=== PATIENT | male | born 1950 | race Caucasian/White ===

== ENCOUNTER 2019-04-09 06:27 | Inpatient (IN) | payer OTHER, MEDICARE ==
[~2019-04-09] VITALS: Ht 177.8 cm; Wt 81.9 kg
[~2019-04-09 06:27] MED LIST: ASPIRIN EC81 M1 PO; CLARITIN10 MG; COREG12.5 MG PO; COUMADIN 2 MG TA2 M1 PO; GABAPENTIN100 MG PO; GLUCOPHAGE500 MG PO; GLUCOTROL10 MG PO; LASIX 40 MG TAB40 M1 PO; LEVEMIR SUBQ; NITROSTAT0.4 M1 SUBLING; NOVOLOG100 UNIT/1 SQ; PACERONE 200 M200 M1 PO; SPIRONOLACTONE25 M1 PO; ZOCOR 20 MG TAB20 M1 PO
[2019-04-09 06:35] VITALS: BP 134/65
[2019-04-09] MEDS ORDERED: LISINOPRIL2.5 MG PO (06:41)
[2019-04-09] MEDS ORDERED: XARELTO20 MG PO (06:42)
[2019-04-09] MEDS ORDERED: FARYDAK10 MG PO (06:43)
[2019-04-09] MEDS ORDERED: OZEMPIC1 MG/0.75 SUBQ (06:43)
[2019-04-09] MEDS ORDERED: FARXIGA10 MG PO (06:44)
[2019-04-09] MEDS ORDERED: OSTERA TABLET1 EAC1 PO (06:45)
[2019-04-09] MEDS ORDERED: SODIUM BICARBO650 M3 PO (06:45)
[2019-04-09 07:02] LABS: HEMATOCRIT 49.9 % (42.0-52.0); HEMOGLOBIN 16.7 gm/dL (14.0-18.0); MCH 30.9 pg (26.0-34.0); MCHC 33.4 g/dL (28.0-37.0); MCV 92.5 fL (80.0-100.0); MPV 8.7 fl. (7.2-11.1); NUCLEATED RBCS 0 /100WBC; PLATELET COUNT* 217 thou/uL (150-400); RDW-CV 15.1 % (10.5-14.5); WBC 18.5 thou/uL (4.0-11.0)
[2019-04-09 07:06] LABS: CALCIUM 9.9 mg/dL (8.5-10.1); CREATININE 1.9 mg/dL (0.6-1.3)
[2019-04-09 07:10] LABS: ALBUMIN 3.2 g/dL (3.4-5.0); TOTAL PROTEIN 7.8 g/dL (6.4-8.2)
[2019-04-09 07:56] LABS: ABSOLUTE LYMPHOCYTES 0.2 thou/uL (0.8-5.3); ABSOLUTE MONOCYTES 1.5 thou/uL (0.0-1.2); ABSOLUTE NEUTROPHILS 16.8 thou/uL (1.6-8.1)
[2019-04-09 07:57] LABS: MICROCYTES 1+; PLATELET ESTIMATE ADEQUATE
[2019-04-09 08:34] LABS: URINE BLOOD NEGATIVE (Negative); URINE CLARITY CLEAR; URINE COLOR YELLOW; URINE GLUCOSE-RANDOM 3+ (Negative); URINE KETONES TRACE (Negative); URINE LEUKOCYTES-REFLEX NEGATIVE (Negative); URINE NITRITE-REFLEX NEGATIVE (Negative); URINE PROTEIN NEGATIVE (Negative); URINE SPECIFIC GRAVITY >= 1.030 (1.005-1.030); URINE UROBILINOGEN 0.2 E.U./dl (0.2-1.0)
[2019-04-09 08:38] LABS: ICTOTEST (BILI CONFIRMATORY) Negative (Negative); URINE BILIRUBIN 1+ (Negative)
[2019-04-09 11:20] VITALS: BP 107/51
[2019-04-09 11:55] VITALS: BP 125/74
[2019-04-09] MEDS ORDERED: NEURONTIN100 MG PO (12:31)
[2019-04-09] MEDS ORDERED: VITAMIN D21250 MC1 PO (12:32)
--- NOTE | 2019-04-09 12:57 | NUR ---
PT ARRIVED FROM ER AROUND 1145. ASSESSMENT COMPLETED CHARTED. ABLE TO MAKE NEEDS KNOWN. UP WITH SBA DUE TO PAIN WHILE STANDING. PAIN IS "OK" WHILE LAYING DOWN. BROTHER AT BEDSIDE. SURGERY AT 3PM. NPO, PT AND BROTHER UNDERSTANDING. WILL CONTINUE TO MONITOR.
--- NOTE | 2019-04-09 16:05 | 2DMMODE ---
[place] [address] 2 D/M-MODE ECHOCARDIOGRAM Name: WILLEM MENEZES Room: [address] ADM IN ..#: [id number] Admission: 04/09/19 Attend Phys: Lily Wilson Discharge: Date of : 54 Date of Service: 04/09/19 1604 Report #: [id number] THIS REPORT FOR: //name// APPROVED REPORT Study performed: 04/09/2019 13:47:52 EXAM: Comprehensive 2D, Doppler, and color-flow Echocardiogram Patient Location: Bedside BSA: 2.00 HR: 80 bpm BP: 125/74 mmHg Other Information Study Quality: Fair Technically limited study due to inability to position patient. Indications Dyspnea Pre Op Appendicitis 2D Dimensions IVSd: 10.75 (7-11mm) LVOT Diam: 21.67 (18-24mm) LVDd: 43.71 mm PWd: 10.08 (7-11mm) Ascending Ao: 37.21 (22-36mm) LVDs: 36.69 (25-40mm) Aortic Root: 29.23 mm Volumes Left Atrial Volume (Systole) LA ESV Index: 15.50 mL/m2 Aortic Valve AoV Peak Gordon.: 1.07 m/s AO Peak Gr.: 4.59 mmHg LVOT Max P.43 mmHg AO Mean Gr.: 2.86 mmHg LVOT Mean P.56 mmHg LVOT Max V: 0.93 m/s AO V2 VTI: 19.02 cm LVOT Mean V: 0.56 m/s TRACEY (VTI): 3.22 cm2 LVOT V1 VTI: 16.59 cm Mitral Valve E/A Ratio: 0.74 MV Decel. Time: 142.96 [place] [address] 2 D/M-MODE ECHOCARDIOGRAM Name: WILLEM MENEZES Room: [address] IN ..#: [id number] Admission: 04/09/19 Attend Phys: Lily Wilson Discharge: Date of : 54 Date of Service: 04/09/19 1604 Report #: [id number] MV E Max Gordon.: 0.43 m/s MV PHT: 41.46 ms MVA (PHT): 5.31 cm2 TDI E/Lateral E': 3.58 E/Medial E': 3.91 Medial E' Gordon.: 0.11 m/s Lateral E' Gordon.: 0.12 m/s Pulmonary Valve PV Peak Gordon.: 0.85 m/s PV Peak Gr.: 2.90 mmHg Left Ventricle The left ventricle is normal size. akinesis noted of the base of the inferior wall, and distal anteroseptal wall and apex Mild concentric left ventricular hypertrophy. Left ventricular systolic function is moderately decreased. LVEF is 30-35%. Right Ventricle The right ventricle is normal size. The right ventricular systolic function is normal. Atria The left atrium size is normal. The right atrium size is normal. Aortic Valve The Aortic valve is sclerotic. No aortic regurgitation is present. There is no aortic valvular stenosis. Mitral Valve The mitral valve is normal in structure. There is no mitral valve regurgitation noted. No evidence of mitral valve stenosis. Tricuspid Valve The tricuspid valve is normal in structure. There is no tricuspid valve regurgitation noted. Pulmonic Valve Pulmonic valve is not well visualized. There is no pulmonic valvular regurgitation. Great Vessels The aortic root is normal in size. IVC is normal in size and collapses >50% [place] [address] 2 D/M-MODE ECHOCARDIOGRAM Name: WILLEM MENEZES Room: [address] IN [facility]#: [id number] Admission: 04/09/19 Attend Phys: Lily Wilson Discharge: Date of : 54 Date of Service: 04/09/19 1604 Report #: [id number] Pericardium There is no pericardial effusion. <Conclusion> Mild concentric left ventricular hypertrophy. LVEF is 30-35%. akinesis noted of the base of the inferior wall, and distal anteroseptal wall and apex The Aortic valve is sclerotic. <ELECTRONICALLY SIGNED> By: Luis Enrique Garner MD, FACC 04/09/19 1604 03 160 Luis Enrique Garner MD, FACC /INF
--- NOTE | 2019-04-09 16:07 | EKG ---
[place] [address] ELECTROCARDIOGRAM REPORT Name: WILLEM MENEZES Room: [address] ADM IN ..#: [id number] Admission: 04/09/19 Attend Phys: Yi Ramirez Discharge: Date of : 54 Report #: [id number] THIS REPORT FOR: //name// [facility] ED Test Date: 2019-04-09 Test Time: 08:58:03 Pat Name: WILLEM MENEZES Department: Room: [facility] Gender: M Wharf Hand: : 1950 Requested By: Dev Spencer Order Number: [id number] MD: Luis Enrique Garner Measurements Intervals [place] Rate: 83 P: [place]: QRS: -75 QRSD: 149 T: 34 QT: 412 QTc: 485 Interpretive Statements Atrial tachycardia with pvc RBBB left axis Anterior infarct, old Compared to ECG 07/30/2011 08:17:55 Sinus rhythm no longer present Myocardial infarct finding still present Electronically Signed On 04-09-2019 16:07:32 [employer] DRIVER by Luis Enrique Garner [email or web address] <ELECTRONICALLY SIGNED> By: Luis Enrique Garner MD, [facility] 04/09/19 1607 0858 0858 Luis Enrique Garner MD, [facility] /EPI
[2019-04-09 16:58] VITALS: BP 112/49
[2019-04-09 19:45] VITALS: BP 108/64
[2019-04-10] VITALS (11 sets, daily range): BP systolic 87–153; BP diastolic 49–78
--- NOTE | 2019-04-10 00:22 | NUR ---
ASSUMED CARE OF PT AT 1900. PT IS ALERT AND ORIENTED. VSS. PERRLA. PT REPORTS PAIN ONLY WHEN UP AND WALKING. PT IS NPO. PT IS IN A FIB ON THE TELEMETRY. PT IS RESTING COMFORTABLY IN BED. RESPIRATIONS ARE EVEN AND NONLABORED. WILL CONTINUE TO MONITOR PT.
[2019-04-10 05:25] LABS: ANION GAP 11 mmol/L (7-16); BUN 36 mg/dL (7-18); CHLORIDE 102 mmol/L (98-107); CHOLESTEROL 79 mg/dL (<200); CO2 22 mmol/L (21-32); CREATININE 1.5 mg/dL (0.6-1.3); GLUCOSE 144 mg/dL (70-99); HDL CHOLESTEROL 21 mg/dL (>40); LDL CHOLESTEROL 40 mg/dL (<100); POTASSIUM 4.1 mmol/L (3.5-5.1); SODIUM 135 mmol/L (136-145); TC:HDL 3.8 Ratio (Not establshd); TRIGLYCERIDE 93 mg/dL (<150); VLDL 19 mg/dL (<40)
[2019-04-10 05:43] LABS: CALCIUM 7.9 mg/dL (8.5-10.1); SERUM ASSESSMENT CLEAR
[2019-04-10 09:50] LABS: APTT 32.5 Seconds (25.0-31.3); PROTIME 10.7 Seconds (9.20-11.50)
--- NOTE | 2019-04-10 12:05 | NUR ---
Nutrition: Consult received for poor intake. Pt admitted with appendicitis, is NPO. Surgery for appendix. BG 144, alb 3.2. Wt: 181#. No nutiriton interventions at this time. Diet to advance when clinically able. Hopeful for good intake. Supplements available if desired. Mild risk.
--- NOTE | 2019-04-10 12:08 | NUR ---
Pt is A&O. Resides at home alone. Independent and active. No DME. No hx of HH or SNF. Goal is home at [place]. DPOA completed yesterday, appointing Pt's brother, Kai.
--- NOTE | 2019-04-10 13:46 | EKG ---
[place] [address] ELECTROCARDIOGRAM REPORT Name: WILLEM MENEZES Room: [address] ADM IN M.R.#: [id number] Admission: 04/09/19 Attend Phys: Yi Ramirez Discharge: Date of : 54 Report #: [id number] THIS REPORT FOR: //name// [facility] Test Date: 2019-04-10 Test Time: 08:38:18 Pat Name: WILLEM MENEZES Department: Room: [address] Gender: M Fabrication Welder: : 1950 Requested By: Luis Enrique Garner Order Number: [id number] Marge MD: Dameon Dykes Measurements Intervals [place] Rate: 85 P: -51 [place]: 164 QRS: -86 QRSD: 155 T: 68 QT: 417 QTc: 496 Interpretive Statements Sinus rhythm Left atrial enlargement Multiple ventricular premature complexes Right bundle branch block Anterior infarct, old Compared to ECG 04/09/2019 08:58:03 Myocardial infarct finding still present Electronically Signed On 04-10-2019 13:46:14 [employer] SUPERVISOR by Dameon Dykes [email or web address] <ELECTRONICALLY SIGNED> By: Dameon Dykes MD, FACC 04/10/19 1346 0838 0838 Dameon Dykes MD, FACC /EPI
[2019-04-10 13:54] LABS: HEMATOCRIT 39.8 % (42.0-52.0); MCH 30.8 pg (26.0-34.0); MCHC 33.3 g/dL (28.0-37.0); MCV 92.3 fL (80.0-100.0); MPV 8.4 fl. (7.2-11.1); RBC 4.31 mil/uL (4.50-6.00); RDW-CV 14.7 % (10.5-14.5); WBC 11.2 thou/uL (4.0-11.0)
[2019-04-10 13:56] LABS: HEMOGLOBIN 13.3 gm/dL (14.0-18.0)
--- NOTE | 2019-04-10 13:56 | CON ---
[address] [address] CONSULTATION Name: WILLEM MENEZES Room: [address] IN .R.#: [id number] Admission: 04/09/19 Attend Phys: Yi Ramirez Discharge: Date of : 54 Report #: [id number] THIS REPORT FOR: //name// CC: [facility] physician/PCP Lily Wilson DATE OF SERVICE: 04/09/2019 HISTORY OF PRESENT ILLNESS: The patient is a 68-year-old single white male who I was asked to see in the hospital today because of his history of coronary artery disease. The patient has a long history of diabetes. He actually presented in 2011 with an anterior STEMI. He had stents placed in his LAD. He was found to have evidence of an ischemic cardiomyopathy. He subsequently had a single lead defibrillator implanted. His last nuclear stress test in 2014 showed an anterior scar with an ejection fraction of 30%, but no ischemia. Echocardiogram a year ago showed an ejection fraction of 25%. I actually just saw him in the clinic 3 weeks ago. He denied any recent chest pain, increased shortness of breath, palpitation, syncope or edema. He was doing well over the past 2 days. He has had right lower quadrant pain. Denied any vomiting, diarrhea, fever. Finally, he came to the Emergency Room this morning and was found to be having appendicitis. He is scheduled for surgery. I was asked to see him for further evaluation and treatment. The patient knows because of the abdominal pain he stopped taking all his medications 2 days ago. PAST MEDICAL HISTORY: Otherwise significant for broken arm requiring surgery, shoulder surgery, tonsillectomy, cataract extraction. He has a history of atrial fibrillation, chronic kidney disease, diabetes, sleep apnea and uses CPAP. MEDICATIONS: Before he stopped 2 days ago included Coreg, Forxiga, Lasix, lisinopril, Xarelto, simvastatin and spironolactone. ALLERGIES: He has no known drug allergies. FAMILY HISTORY: His grandfather had heart disease. SOCIAL HISTORY: He is single, never been , lives in [place], still works as an hedge fund accountant, never smoked, never drank alcohol. REVIEW OF SYSTEMS: No history of stroke. Previous carotid Doppler study showed no significant stenosis. No history of asthma, liver disease. He has chronic kidney disease. No cancer. No psychiatric illness. PHYSICAL EXAMINATION: GENERAL: Revealed an elderly male, who appeared in no acute distress. VITAL SIGNS: He had a blood pressure of 120/70, pulse is 90, [place] [address] CONSULTATION Name: WILLEM MENEZES Room: [address]#: [id number] Admission: 04/09/19 Attend Phys: Yi Ramirez Discharge: Date of : 54 Report #: [id number] HEENT: He is anicteric. Conjunctivae pink. Mucous membranes moist. NECK: Veins nondistended. No carotid bruits. CHEST: Clear to auscultation. CARDIAC: Regular rate and rhythm. ABDOMEN: Soft. EXTREMITIES: Had no edema. SKIN: Warm and dry. NEUROLOGIC: Nonfocal. RADIOLOGICAL DATA: His ECG on admission showed atrial fibrillation with controlled ventricular response rate, right bundle-branch block. LABORATORY DATA: His workup in the Emergency Room today included: Sodium 132, potassium 5.0, creatinine 1.9. His SGOT 14, bilirubin 2.0, alkaline phosphatase 83, SGPT 26. His white blood cell count 18.5, hemoglobin 16.7. IMPRESSION AND RECOMMENDATIONS: 1. Coronary artery disease. No recent angina. I would resume aspirin after surgery. 2. Cardiomyopathy. After surgery, I would resume beta-sierra and KESHA inhibitor. I would not recommend Aldactone due to his chronic kidney disease. 3. Atrial fibrillation. Rate controlled with beta-sierra. I would continue anticoagulation with Xarelto after surgery. 4. Chronic kidney disease. 5. Diabetes. 6. Previous implantation of defibrillator. I would place a magnet over the defibrillator during surgery. 7. Sleep apnea. The patient uses CPAP. 8. Hyperlipidemia. The patient is on a statin drug. <ELECTRONICALLY SIGNED> By: Luis Enrique Garner MD, FACC 04/10/19 1356 1444 [id number] Garner MD, FACC /nt
--- NOTE | 2019-04-10 19:13 | NUR ---
ASSUMED PT CARE AT 0700, PT A&O X4, SPORTS UMPIRE TRACING SINUS RHYTHM WITH BBB, RA, C/O PAIN TO ABDOMEN, PRN PAIN MEDS ON BOARD, DRAIN TO RIGHT UPPER QUAD PATENT AND DRAINING PURULENT FLUID. CONT IV ABTS, INFECTIOUS DISEASE CONSULTED. HOURLY ROUNDING COMPLETED.
[2019-04-11 00:34] VITALS: BP 110/72
--- NOTE | 2019-04-11 03:24 | NUR ---
ASSUMED CARE OF PT AT 1900. PT IS ALERT AND ORIENTED. VSS. PERRLIAN. PT IS HAVING SOME PAIN IN HIS ABDOMAN. PT RECIEVED FENTANYLY FOR PAIN. PT HAS A DEPENDENT DRAIN IN ABDOMAN WITH A MODERATE AMOUNT OF PURULENT DRAINAGE. PT IS IN SINUS RYTHM N THE TELEMETRY. PT IS RESTING COMFORTABLY IN BED. RESPIRATIONS ARE EVEN AND NONLABORED. WILL CONTINUE TO MONITOR PT.
[2019-04-11 04:00] VITALS: BP 117/84
[2019-04-11 05:57] LABS: CALCIUM 8.4 mg/dL (8.5-10.1); CREATININE 1.1 mg/dL (0.6-1.3)
[2019-04-11 08:00] VITALS: BP 137/67
[2019-04-11 11:35] VITALS: BP 127/88
[2019-04-11 16:21] VITALS: BP 115/65
--- NOTE | 2019-04-11 19:43 | NUR ---
ASSUMED PT CARE AT 0730. ASSESSMENT COMPLETED CHARTED. ABLE TO MAKE NEEDS KNOWN. UP WITH SBA. C/O ABDOMINAL PAIN WHEN STANDING, GAVE 1 DOSE OF PRN PAIN MEDICATION PER EMAR, PAIN RELIEF. RESTING IN BED AT THIS TIME. IV ABT. WILL COTNINUE TO MONITOR.
[2019-04-11 20:00] VITALS: BP 148/77
[2019-04-12] VITALS: BP 118/85
[2019-04-12 04:00] VITALS: BP 125/82
--- NOTE | 2019-04-12 05:10 | NUR ---
PT REPORTS PAIN WITH ACTIVITY. ENCOURAGED PT TO INCREASE ACTIVITY LEVEL AND EDUCATED ON USE OF PAIN MEDICATION PRIOR TO HELP WITH PAIN. PT HAS NO OTHER C/O OF DISCOMFORT AND STATES PAIN IS A ZERO AT REST. HE REQUIRED NO MEDICATION HE WAS IN BED. CURRENTLY ASLEEP WITH CALL LIGHT WITHIN REACH.
[2019-04-12 08:00] VITALS: BP 127/87
--- NOTE | 2019-04-12 08:29 | CON ---
[address] [address] CONSULTATION Name: CLIFWILLEMADONAY VINCENT Room: [address] IN .R.#: [id number] Admission: 04/09/19 Attend Phys: Yi Ramirez Discharge: Date of : 54 Report #: [id number] THIS REPORT FOR: //name// CC: [facility] physician/PCP Lily Wilson DATE OF SERVICE: 04/11/2019 INFECTIOUS DISEASE CONSULTATION ATTENDING PHYSICIAN: Dr. Wilson. REASON FOR EVALUATION: Acute perforated appendicitis complicated by peritonitis. HISTORY OF PRESENT ILLNESS: Chart reviewed, patient examined. This is a 68-year-old gentleman with diabetes mellitus, also has known vasculopathy, coronary artery disease, previous acute myocardial infarction complicated by cardiac dysrhythmias requiring an implantable defibrillator, who over the course of the last 2-3 days prior to admission, developed a discomfort associated with his right lower quadrant. He had been moving boxes, felt maybe he had a muscle strain; however, this seemingly worse and became severe. Admission evaluation suggested likely right lower quadrant inflammatory process with abscess, underwent percutaneous drainage with overt purulence, suspected perforated appendix. He was placed empirically on antimicrobial therapy with piperacillin and tazobactam. At this point, he is not overtly toxic, does have some ongoing pain. There is a drain in place. Denies any pulmonary complaints. He is tolerating a clear liquid diet. No recent fevers. He is not encephalopathic. ALLERGIES: None known. CURRENT MEDICATIONS: Include enoxaparin, fentanyl, Zosyn, insulin sliding scale, p.r.n. analgesics and antiemetics. PAST MEDICAL HISTORY: As described above, diabetes mellitus, has known vasculopathy, previous acute myocardial infarction with cardiomyopathy, implantable defibrillator pacer, atrial fibrillation, hypertension. SOCIAL HISTORY: Nonsmoker, no ethanol, no illicit drug use. FAMILY HISTORY: Noncontributory. REVIEW OF SYSTEMS: Otherwise, unremarkable 10-point review of systems with exception of the above, as notable has had some weight loss. PHYSICAL EXAMINATION: [place] [address] CONSULTATION Name: WILLEM MENEZES Room: [address] IN [facility]#: [id number] Admission: 04/09/19 Attend Phys: Yi Ramirez Discharge: Date of : 54 Report #: [id number] GENERAL: He is alert, cooperative, appropriate, some mild distress, appears to be reasonably well nourished. VITAL SIGNS: Temperature 97.9, pulse 84, respirations 19, blood pressure 137/67. SKIN: Warm, dry, no rashes. HEENT: Otherwise, unremarkable. NECK: Supple. LUNGS: Generally clear to auscultation bilaterally. HEART: Irregular. I do not appreciate murmur. ABDOMEN: Soft. It is tender and particularly in left lower quadrant, there is a drainage catheter in place. There is no overt cellulitic process at the surface. EXTREMITIES: Lower extremities without significant edema. GENITOURINARY AND RECTAL: Deferred. LABORATORY DATA: Electrolytes: Sodium 140, potassium 4.0, chloride 108, bicarbonate 21, anion gap of 11, BUN and creatinine 24 and 1.1, estimated GFR of 67. NT-pro brain natriuretic peptide 1102. Recent CBC: White count of 11.2, H and H 13.3 and 39.8, platelets of 151. Abdominal fluid culture is pending as is a Gram stain. ASSESSMENT: Appendiceal abscess in the setting of perforation, component of peritonitis. We will continue empiric therapy with piperacillin and tazobactam, should give us good coverage for presumed polymicrobial etiology including aerobes, anaerobes, Gram negatives in particular, would await culture results. If it worsens, consider adding antifungal. We will add incentive spirometer. At this point, I do not think he is at high risk for infectious complications, although he was encouraged to increase his activity, advance diet as allowed. <ELECTRONICALLY SIGNED> By: Kamaljit Helm MD 04/12/19 0829 1025 [id number] Helm MD /nt
[2019-04-12 12:16] VITALS: BP 118/77
[2019-04-12 16:35] VITALS: BP 128/81
[2019-04-12 20:00] VITALS: BP 132/94
[2019-04-13] VITALS: BP 103/52; BP 122/81
[2019-04-13 04:00] VITALS: BP 113/81
[2019-04-13 08:00] VITALS: BP 141/92
--- NOTE | 2019-04-13 08:12 | NUR ---
ASSUMED PATIENT CARE AT 1900. ASSESSMENT COMPLETED CHARTED. PATIENT IS SR WITH A BBB AND PVCS ON THE MONITOR. HOURLY ROUNDING IN PLACE FOR PATIENT SAFETY. CLWR.
--- NOTE | 2019-04-13 09:08 | CON ---
[address] [address] CONSULTATION Name: CLIFWILLEM MELISA Room: [address] IN .R.#: [id number] Admission: 04/09/19 Attend Phys: Yi Ramirez Discharge: Date of : 54 Report #: [id number] THIS REPORT FOR: //name// CC: [facility] physician/PCP Lily Wilson DATE OF SERVICE: 04/10/2019 NEPHROLOGY CONSULTATION CONSULTING PHYSICIAN: Dr. Wilson. REASON FOR NEPHROLOGY CONSULTATION: Acute kidney injury on chronic kidney disease stage 3. REASON FOR ADMISSION: Right lower quadrant pain. HISTORY OF PRESENT ILLNESS: This is a 68-year-old male with past medical history of coronary artery disease, chronic systolic congestive heart failure, history of ejection fraction to be 20-25%, chronic kidney disease stage 3, baseline creatinine 1.2-1.4, which is associated with vascular disease and cardiorenal etiology, follows with Dr. Crouch who is one of my partners for his chronic kidney disease, came in with a few day history of right lower quadrant abdominal pain. Here in the ER, he was diagnosed initially with acute appendicitis and then he had a CT scan with IV contrast done, which showed evidence of perforated appendix with a walled off abscess formation. He does have evidence of leukocytosis. Surgery evaluated him and felt that the best way to proceed will be a percutaneous drainage, which has been scheduled for today. The patient is n.p.o. for that. The patient is also taking Xarelto for atrial fibrillation. He also has history of diabetes mellitus type 2. He at home does take Aldactone, lisinopril for the past 2 days because of abdominal pain. He has not been taking any of his medications. He does take Farxiga at home as well. His baseline creatinine is 1.2-1.4 as mentioned above and his creatinine was 1.9 on admission and has gone down to 1.5 today with IV fluids. He had another echocardiogram done during this hospitalization, which showed wall motion abnormalities with ejection fraction, which is improved to 30-35%. The patient is very anxious about his disease process. ALLERGIES: No known allergies. REVIEW OF SYSTEMS: As mentioned in history of present illness, otherwise 10-point review of systems is negative. HOME MEDICATIONS: Include carvedilol, simvastatin, spironolactone 25 mg once a day, nitroglycerin, gabapentin, ergocalciferol, lisinopril 2.5 mg daily, rivaroxaban, semaglutide, dapagliflozin, [place] [address] CONSULTATION Name: WILLEM MENEZES MELISA Room: [address] IN [facility]#: [id number] Admission: 04/09/19 Attend Phys: Yi Ramirez Discharge: Date of : 54 Report #: [id number] PAST MEDICAL AND SURGICAL HISTORY: Includes chronic kidney disease stage 3, baseline creatinine 1.2-1.4 because of vascular disease and cardiorenal etiology, chronic systolic congestive heart failure and his ejection fraction used to be 20-25%, but at current time it is 30-35%, shoulder surgery, arm fracture, dental implants, tonsillectomy, borderline hypertension, environmental allergies, he has an AICD and atrial fibrillation. SOCIAL HISTORY: Lives at home, does not smoke or drink alcohol or use illicit drugs. FAMILY HISTORY: Reviewed and noncontributory. PHYSICAL EXAMINATION: VITAL SIGNS: Blood pressure is 113/78, respiratory rate is 16, pulse rate is 84, temperature 36.9, pulse ox is 96%. He is on room air. GENERAL: He is awake, alert and oriented x 3. He is very anxious about the procedure today. HEAD AND EYES: Atraumatic, normocephalic. EARS, NOSE, AND THROAT: Normal ears and nose. Mucous membranes are moist. NECK: No JVD. CHEST: Bilaterally clear to auscultation anteriorly. No crackles or wheezing. CARDIOVASCULAR: S1, S2 normal. No murmurs heard. ABDOMEN: Soft. I did not press his abdomen and right lower quadrant area, which looked swollen and he is tender over there and bowel sounds are decreased. EXTREMITIES: Lower extremities, there is no lower extremity edema. NEUROLOGICAL FUNCTION: Gross neurological function is intact. PSYCHIATRIC: Mood and affect seems to be normal. LABORATORY DATA: WBC is 18.5, hemoglobin 16.7, platelet count is 217. Creatinine is 1.5 and was down from 1.9. Urine showed trace ketones, no blood or protein on dipstick. Other labs are reviewed. IMAGING: Chest x-ray, abdominal and pelvic CT scan were reviewed. ASSESSMENT: 1. Acute kidney injury on chronic kidney disease stage 3, creatinine 1.9 on admission, baseline creatinine 1.2-1.4, urine reviewed, had trace ketones, otherwise unremarkable, and there was no hydronephrosis on abdominal CT scan. The patient was intravascularly volume depleted, does take lisinopril and Aldactone at home and presented with perforated appendix with abscess formation. He also received IV contrast with the CT scan on 04/09/2019. 2. Abdominal pain, perforated appendix with walled off abscess with percutaneous drainage. General Surgery and I are following. 3. History of chronic systolic congestive heart failure. Currently, he is intravascularly volume depleted. His ejection fraction is 30-35% with wall [facility] [address] [place] [address] CONSULTATION Name: CLIFWILLEM MELISA Room: [address] ADM IN .R.#: [id number] Admission: 04/09/19 Attend Phys: Yi Ramirez Discharge: Date of : 54 Report #: [id number] motion abnormalities. 4. History of atrial fibrillation, on anticoagulation at home, which is currently on hold. 5. History of coronary artery disease. 6. Diabetes type 2. PLAN: 1. Continue with IV fluids, normal saline at 100 mL an hour and after his procedure, he is able to eat and drink appropriately. At that point, fluids can be stopped given his history of congestive heart failure. 2. Avoid nephrotoxic agents, NSAIDs. 3. Avoid restarting his spironolactone, lisinopril right now. Farxiga should also be started as outpatient. He did receive IV contrast yesterday, so we have to follow his creatinine tomorrow. 4. His I's and O's should be strict. Thank you for this consultation. We will continue to follow along with you. Discussed with the patient, the patient's family and the patient's nurse. <ELECTRONICALLY SIGNED> By: Tami Borjas MD 04/13/19 0908 0920 [id number] caty Borja
[2019-04-13 11:43] VITALS: BP 130/81
[2019-04-13 12:45] LABS: ABSOLUTE BASOPHILS 0.1 thou/uL (0.0-0.2); ABSOLUTE EOSINOPHILS 0.1 thou/uL (0.0-0.7); ABSOLUTE LYMPHOCYTES 0.9 thou/uL (0.8-5.3); ABSOLUTE MONOCYTES 0.7 thou/uL (0.0-1.2); BASOPHILS 0.7 %; EOSINOPHILS 1.4 %; HEMATOCRIT 45.3 % (42.0-52.0); HEMOGLOBIN 15.3 gm/dL (14.0-18.0); LYMPHOCYTES 8.8 %; MCH 31.2 pg (26.0-34.0); MCHC 33.7 g/dL (28.0-37.0); MCV 92.6 fL (80.0-100.0); MONOCYTES 7.1 %; MPV 7.8 fl. (7.2-11.1); NUCLEATED RBCS 0 /100WBC; PLATELET COUNT* 213 thou/uL (150-400); RBC 4.89 mil/uL (4.50-6.00); RDW-CV 14.6 % (10.5-14.5); WBC 9.8 thou/uL (4.0-11.0)
[2019-04-13 13:06] LABS: ALBUMIN 2.4 g/dL (3.4-5.0); CREATININE 1.2 mg/dL (0.6-1.3); POTASSIUM 3.9 mmol/L (3.5-5.1); TOTAL BILIRUBIN 0.4 mg/dL (<0.1-1.0); TOTAL PROTEIN 6.9 g/dL (6.4-8.2)
[2019-04-13 16:41] VITALS: BP 130/79
--- NOTE | 2019-04-13 19:03 | NUR ---
ASSUMED PT CARE AT 0700, PT A&O X4, UP WITH STANDBY ASSIST, ZIPPER SETTER TRACING PACED RHYTHM WITH MULTIPLE PVC'S, FULL ASSESSMENT CHARTED. PT TRANSITIONED TO PO AABT FOR POSSIBLE DC HOME TOMORROW, TOLERATED WELL. ABDOMINAL US COMPLETEDE, RESULTS CHARTED, HOURLY ROUNDING COMPLETED.
[2019-04-13 20:00] VITALS: BP 120/74
[2019-04-14] VITALS: BP 114/72
[2019-04-14 04:09] VITALS: BP 126/80
--- NOTE | 2019-04-14 07:36 | NUR ---
ASSUMED PATIENT CARE AT 1900. ASSESSMENT COMPLETED CHARTED. PATIENT IS SR WITH BBB AND PVCS ON THE MONITOR. PATIENT EDUCATED ON SAFETY, FALL PREVENTION, AND PURPOSE OF BED ALARM. PATIENT REFUSES BED ALARM. HOURLY ROUNDING IN PLACE FOR PATIENT SAFETY. CLWR.
[2019-04-14 11:26] VITALS: BP 128/84
[2019-04-14 16:00] VITALS: BP 138/78
--- NOTE | 2019-04-14 18:17 | NUR ---
ASSUMED PT CARE AT 0700, PT A&O X4, VSS, RA, FOREIGN LANGUAGES DEPARTMENT CHAIR TRACING PACED RHYTHM WITH FIRST DEGREE BLOCK, UP AD FIFI TO BATHROOM. PT C/O 4-5 LOOSE BM'S WITH "A LOT OF MUCUS IN IT". NEW ORDER TO TEST FOR CDIFF, ISO PRECAUTIONS IN PLACE. DRAIN IN RIGHT SIDE OF ABDOMEN DRAINING MINIMAL AMOUNT OF GREEN FLUID. PT EDUCATED ON CDIFF TESTING, HOURLY ROUNDING COMPLETED.
[2019-04-14 19:40] VITALS: BP 112/70
[2019-04-15] VITALS: BP 120/74
[2019-04-15 04:00] VITALS: BP 128/81
--- NOTE | 2019-04-15 05:07 | NUR ---
ASSUMED CARE OF PATIENT APPROX 1930. PATIENT PROGRESSING TOWARDS GOALS: DENIES PAIN AND DISCOMFORT, DENIES NAUSEA. RIGHT ABDOMINAL DRAIN IN PLACE, SECURED TO GOWN. PATIENT UP INDEPENDENTLY. CALL LIGHT WITHIN REACH
[2019-04-15 07:00] VITALS: BP 125/77
--- NOTE | 2019-04-15 10:32 | NUR ---
INITAL ASSESSMENT COMPLETED CHARTED. VSS. PT DENIES PAIN, DRAIN IN PLACE WITH MINIMAL DRAINAGE. REDER TO COMPUTER CHARTING FOR FURTHER DETAILS. HOURLY ROUNDING IN PLACE FOR PT SAFETY. CLWR.
[2019-04-15 11:13] VITALS: BP 121/70
[2019-04-15 11:45] VITALS: BP 121/70
[2019-04-15] MEDS ORDERED: AUGMENTIN 875-1 EACH PO (12:01)
== END 2019-04-15 13:45 | disposition home or self-care (01) | DRG 371 ==
LOC: M.ERS 06:27 → M.2W 09:11 → M.TBA-ER 09:11 → M.2W 11:27
PROVIDERS: Emergency Medicine; Internal Medicine; Internal Medicine Cardiovascular Disease; Radiology Diagnostic Radiology; ADMIT Internal Medicine
PROC: 0W9F3ZZ Drainage of Abdominal Wall, Percutaneous Approach (ICD-10-PCS; principal; 2019-04-10)
DX: K35.33 Acute appendicitis with perforation, localized peritonitis, and gangrene, with abscess (principal); N17.0 Acute kidney failure with tubular necrosis; R65.11 Systemic inflammatory response syndrome (SIRS) of non-infectious origin with acute organ dysfunction; I50.22 Chronic systolic (congestive) heart failure; I13.0 Hypertensive heart and chronic kidney disease with heart failure and stage 1 through stage 4 chronic kidney disease, or unspecified chronic kidney disease; I48.92 Unspecified atrial flutter; I25.5 Ischemic cardiomyopathy; E11.22 Type 2 diabetes mellitus with diabetic chronic kidney disease; E78.5 Hyperlipidemia, unspecified; N18.3 Chronic kidney disease, stage 3 (moderate); I25.10 Atherosclerotic heart disease of native coronary artery without angina pectoris; I48.91 Unspecified atrial fibrillation; G47.33 Obstructive sleep apnea (adult) (pediatric); Z87.81 Personal history of (healed) traumatic fracture; I25.2 Old myocardial infarction; Z79.899 Other long term (current) drug therapy; Z98.818 Other dental procedure status; Z79.01 Long term (current) use of anticoagulants; Z91.09 Other allergy status, other than to drugs and biological substances; Z95.810 Presence of automatic (implantable) cardiac defibrillator; Z95.5 Presence of coronary angioplasty implant and graft; Z86.011 Personal history of benign neoplasm of the brain; Z79.4 Long term (current) use of insulin; Z98.49 Cataract extraction status, unspecified eye

== ENCOUNTER 2019-04-17 10:06 | Emergency (ER) | payer MEDICARE, BC ==
[~2019-04-17] VITALS: Ht 177.8 cm; Wt 77.1 kg
[~2019-04-17 10:06] MED LIST changes: +AUGMENTIN 875-1 EACH PO; +FARXIGA10 MG PO; +FARYDAK10 MG PO; +LISINOPRIL2.5 MG PO; +NEURONTIN100 MG PO; +OSTERA TABLET1 EAC1 PO; +OZEMPIC1 MG/0.75 SUBQ; +SODIUM BICARBO650 M3 PO; +VITAMIN D21250 MC1 PO; +XARELTO20 MG PO
[2019-04-17 17:25] VITALS: BP 138/92
== END 2019-04-17 17:26 | disposition home or self-care (01) ==
LOC: M.ERS 10:06
DX: K63.0 Abscess of intestine (principal); E11.9 Type 2 diabetes mellitus without complications; I48.91 Unspecified atrial fibrillation; Z90.89 Acquired absence of other organs

== ENCOUNTER → 2019-04-30 | Outpatient (CLI) | payer BC, MEDICARE | END | disposition home or self-care (01) | LOC: M.INT 08:40 | DX: Z48.03 Encounter for change or removal of drains (principal); R10.9 Unspecified abdominal pain; I10 Essential (primary) hypertension; I42.9 Cardiomyopathy, unspecified; I25.10 Atherosclerotic heart disease of native coronary artery without angina pectoris; G47.33 Obstructive sleep apnea (adult) (pediatric); Z98.890 Other specified postprocedural states; Z79.899 Other long term (current) drug therapy; Z87.19 Personal history of other diseases of the digestive system ==

== ENCOUNTER → 2020-01-18 | Outpatient (CLI) | payer MEDICARE, OTHER ==
--- NOTE | 2020-01-20 15:00 | CARDNUC ---
[place] [address] CARDIAC NUCLEAR IMAGING REPORT Name: WILLEM MENEZES MELISA Room: [facility]#: [id number] Admission: 01/18/20 Attend Phys: Dameon Dykes, Discharge: Date of : 54 Date of Service: 01/20/20 [facility] Report #: [id number] THIS REPORT FOR: cc: FAM - No family physician/PCP FAM - No family physician/PCP Ash Maddox MD ~ APPROVED REPORT Imaging Protocol: Rest Tc-99m/Stress Tc-99m 1 day Study performed: 01/18/2020 11:41:52 Indication: CAD s/p MA, CAD s/p PCI, Cardiomyopathy,AFib. Patient Location: Out-Patient Stress Tech: Carlita Green Stress Nurse: Corrina Hernandez R.N. Ht: 5 ft 10 in Wt: 188 lbs BSA: 2.03 m2 BMI: 26.97 Medical History Medical History: Angina, Atrial Fibrillation, CAD s/p MA, CAD s/p stent, Cardiomyopathy, CKD, CHF, Diabetes II, HTN, Hyperlipidemia, HTN, YURY, ICD, SOB, Vascular Disease. Medications: Carvedilol, Lisinopril, NTG, Xarelto, Zocor, Spironolactone. Allergies: No known drug allergies Cardiac Risk Factors: Age, DM, HTN, Hyperlipidemia, SOB, Vascular disease, AFib, ICD, CHF, Cardiomyopathy. Previous Cardiac Procedures: Myocardial infarction, PCI, ICD. Pretest Chest Pain Characteristics: No chest pain Exercise History: Physically active Physical Disabilities: ICD, AFib. Meds Held (24 hrs): Carvedilool, NTG. Resting Data Rest SPECT myocardial perfusion imaging was performed in supine position 30 minutes following the intravenous injection of 11.1 mCi of Tc-99m Sestamibi. Time of rest injection: 09:50 The images were gated to evaluate regional wall motion and calculate left ventricular ejection fraction. Administration Route: IV Administration Site: [place] [address] CARDIAC NUCLEAR IMAGING REPORT Name: WILLEM MENEZES Room: [facility]#: [id number] Admission: 01/18/20 Attend Phys: Dameon Dykes, Discharge: Date of : 54 Date of Service: 01/20/20 1500 Report #: [id number] Pharmacologic Stress Pharmacologic stress test was performed by injecting Regadenoson 0.4 mg IV push over 10-15 seconds immediately followed by the intravenous injection of 28.2 mCi of Tc-99m Sestamibi. Time of stress injection: 11:35 Administration Route: IV Administration Site: Right Arm Heart Rate at time of stress injection: 89 bpm. Gated Stress SPECT was performed 40 minutes after stress injection. The images were gated to evaluate regional wall motion and calculate left ventricular ejection fraction. Prone imaging was performed. Stress Test Details Stress Test: Pharmacologic stress testing performed using 0.4 mg of regadenoson per 5 mL given IV over 10 seconds. Reason for pharmacologic stress test: ICD, AFib.. HR Max Heart Rate (APMHR): 153 bpm Resting HR: 75 bpm Target HR (85% APMHR): 130 bpm Max HR Achieved: 89 bpm % of APMHR: 58 Recovery HR: 85 bpm BP Resting BP: 144/93 mmHg Max BP: 115/78 mmHg Recovery BP: 145/82 mmHg ECG Resting ECG: Sinus Rhythm, RBBB Stress ECG: Sinus Rhythm, RBBB ST Change: Non-ischemic Clinical Reason for Termination: Completed protocol Stress Symptoms: None voiced. Exercise duration: 00 min 00 sec Exercise capacity: 1.00 METs Nurse Comments A 69 year old male presented with an ICD and HX of AFib for a sitting Lexiscan r/t CAD MA/PCI, Cardiomyopathy and chest discomfort. Test well tolerated. Recovery unremarkable. Patient escorted by staff to Nuclear Medicine for imaging. Patient was stable and stated [place] [address] CARDIAC NUCLEAR IMAGING REPORT Name: WILLEM MENEZES Room: [facility]#: [id number] Admission: 01/18/20 Attend Phys: Dameon Dykes, Discharge: Date of : 54 Date of Service: 01/20/20 1500 Report #: [id number] Study Quality Study: Good Study Data Post stress, the left ventricular ejection was 26%.. Perfusion There is a large area of severely reduced uptake in the mid and apical segment of the anteroseptal wall which is seen on the stress images as well as the resting images. This area is hypokinetic and is most consistent with myocardial scar. There is a medium area of moderately reduced uptake in the mid and apical segment of the inferior wall which is seen on the stress images as well as the resting images. This area is hypokinetic and is most consistent with myocardial scar. Wall Motion Severely decreased left ventricular systolic function. Nuclear Conclusion ECG Findings: negative for ischemia Clinical Findings: non-diagnostic Nuclear Findings: positive for infarct Exercise Capacity: not assessed Left Ventricular Function: abnormal There are fixed defects consistent with infarcts in the mid to apical anteroseptal and mid to apical inferior bustos. There is severe LV dysfunction. <ELECTRONICALLY SIGNED> By: [place] Maddox MD 01/20/20 1500 1500 99 Ash Maddox MD /INF
== END ==
LOC: M.NUC 09-21 16:23 → M.CRD 12-08 09:00 → M.NUC 12-08 10:00
PROVIDERS: ATTEND Internal Medicine Cardiovascular Disease
DX: I25.10 Atherosclerotic heart disease of native coronary artery without angina pectoris (principal)